=== PATIENT | male | born 1940 | race Caucasian/White ===

== ENCOUNTER 2022-12-24 10:00 | Outpatient (RCR) | payer MEDICARE, SELFPAY ==
--- NOTE | 2022-11-03 16:56 | HP.SP.EV_ITS ---
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 He lives with his , Vero, who was present for session and helped serve as historian. 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 At home Tyson mostly watches TV. Does not assist with making food or folding laundry. Tyson reports having the most difficulty with his words. 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 Smoking Status: Never smoker Pain Is pain an issue with your current prescribed condition?: No Personal Preferred language: [place] * Pediatric & Adult patients Adult BDAE-3 [place] Diagnostic Aphasia Examination BDAE-3 Administered: Yes BDAE-3: The BDAE-3 assesses communication in the areas of: conversational and expository speech, auditory comprehension, oral expression, reading and writing. Date: 11/02/22 Severity Level: 2 Level Detail: Conversation about familiar subjects is possible with help from listener. Frequent failures to convey the idea, but the patient shares the burden of communication. Rating Scale Profile of speech character Articulation Agility: 5 Detail: Facility at phoneme and syllable level ranges from 1 being unable to form speech sounds to 7 being never impaired Phrase length: 5 Detail: Longest occasional uninterrupted word runs Grammatical form: 5 Detail: Variety of grammatical constructions; use of grammatical mophemes: 1=nosyntactic word groupings ranging to 7 being normal range of syntax; normal facility with grammatical words Melodic Line (Prosody): 5 Detail: 1=word b word or aprosodic speech ranging to 7 being normal speech lesa Paraphasia in running speech: 6 Detail: 1 present in evrey utterance ranging to 7 s absent Word finding relative to fluency: 4 Detail: 1 is fluent but empty speech ranging to 7 as output primarily content words Summary Profile Auditory Comprehension Basic word discrimination Percentile: 100 with a raw score of 16/16 Commands Percentile: 30 with a raw score of 7/10 Complex Ideational Material Percentile: WILL CONTINUE NEXT SESSION Summary Profile Recitation Recitation automatized sequences Percentile: 100 with a raw score of 4/4 Summary Profile Repitition Words Percentile: 60 with a raw score of 4/5 Sentences Percentile: 60 with a raw score of 1/2 Summary Profile Naming Responsive Naming Percentile: 100 with a raw score of 10/10 [place] Naming Test Percentile: 70 with a raw score of 11/15; Pt benefited from mod verbal/semantic cues Special Categories Percentile: WILL CONTINUE NEXT SESSION Summary Profile Paraphasia Phonemic example- Janeth for [place]: WILL CONTINUE NEXT SESSION Verbal examples - for : WILL CONTINUE NEXT SESSION Neologistic - example planker for comb: WILL CONTINUE NEXT SESSION Multi-word: WILL CONTINUE NEXT SESSION Summary Profile Reading Matching cases and scripts: WILL CONTINUE NEXT SESSION Number matching: WILL CONTINUE NEXT SESSION Picture - word matching: WILL CONTINUE NEXT SESSION Oral word reading: WILL CONTINUE NEXT SESSION Oral sentence reading: WILL CONTINUE NEXT SESSION Oral sentence comprehension: WILL CONTINUE NEXT SESSION Sentences/Paragraph comprehension: WILL CONTINUE NEXT SESSION Summary Profile Writing Form: WILL CONTINUE NEXT SESSION Letter choice: WILL CONTINUE NEXT SESSION Motor faclility: WILL CONTINUE NEXT SESSION Primer words: WILL CONTINUE NEXT SESSION Regular phonics: WILL CONTINUE NEXT SESSION Common irregular words: WILL CONTINUE NEXT SESSION Written picture naming: WILL CONTINUE NEXT SESSION Narrative writing: WILL CONTINUE NEXT SESSION BDAE-3 Comments Additional Information: -: Due to time constraints of session, unable to complete BDAE-3 in its entirety. Plan to continue with assessment in the next session to determine all strengths and areas of growth for Tyson. During the conversation and picture task, Tyson often using short, yet grammatical sentences such as it was nice or a cookie jar; there was a cookie; he fell. Intermittently a longer phrase such as she's splashing water all over the sink would be used. During what appeared to be a word finding error moment during conversation, ST probed Tyson and asked if jasiel craft forgot what he wanted to say or if he was having a hard time saying the word he wanted. Tyson reported he forgot what he was going to say. Suspect Tyson is having difficulty with both his memory and word finding errors which may be indicative of primary progressive aphasia. Pt reporting great frustration when having word finding difficulty. Reference: Neuro-QoL instrument In past 7 days I had to read something several times to understand it: Very often (several times a day) My thinking was slow: Very often (several times a day) I had to work really hard to pay attention or i would make a mistake: Very often (several times a day) I had trouble concentrating: Sometimes (2-3 times) How much DIFFICULTY do you currently reading & following complex instructions (e.g. directions for new medication: A lot planning for & keeping appts that are not part of weekly routine: A lot managing your time to do most of your daily activities: A lot learning new tasks or instructions: A lot Neuro-QOL Score Raw Score: 14 T - Score: 28.6 Radiation Oncology Patient Other Other Hearing Aids: -: Lengthy conversation at the beginning of session re: Pt's hearing aids. Pt has hearing aids and opts not to wear them. Vero reporting this has been a struggle. Education provided re: importance of wearing hearing aids and how they will help him eliminate the problem solving and auditory comprehension difficulties he reports experiencing during large family gatherings. Suspecting at this time Pt has difficulty understanding what is being said in his environment largely in part d/t not being able to hear. Discussed how wearing hearing aids will allow him to hear what is being said and he would just need to focus on his responses vs. having to problem solve what was said as well as how to respond. Pt seemed receptive to education, however suspect he would benefit from continued education. Plan Plan Plan: Will recommend Pt for weekly outpatient speech therapy intervention address moderate expressive aphasia and moderate cognitive deficits. Pt would benefit from circumlocution training, verb network training, and immediate feedback to identify instances of word finding errors. Pt would also benefit from cognitive training to assess home-life activities and how modifications to existing routines may assist in improving memory. Without skilled intervention Pt is at risk for difficulty with communicating basic, medical, emergent, social wants & needs, and interacting with family/friends at home, and during social interactions. Recommendations Treatment Warranted: Yes Treatment Warranted: Receptive/ Expressive Language and Cognition Progress Prognosis: Good Frequency Frequency: 1x/Week Duration: 6 Weeks Goals that are Established Determination:: Goals will be added/modified as deemed necessary and appropriate. Therapy will be discontinued when results of re-evaluation indicate therapy is no longer needed or lack of progress has been documented. Goal #1-5 Goal #1: Tyson will modify environment at home via implementing memory compensatory strategies within 3 weeks' time of their initial evaluation. Goal #2: Tyson will generate 3 sentences when given a target verb following WHO+verb+WHAT structure in 4/6 opportunities given min verbal cues across 3 consecutively measured sessions. Goal #3: Tyson will generate 3 additional pieces of information answering WHERE/WHEN/WHY of one self-created WHO+verb+WHAT sentence with 2 of the 3 questions answered independently across 3 consecutively measured sessions. Goal #4: Tyson will independently demonstrate use of word finding strategies to complete complex convergent and divergent naming tasks with 70% acc across 3 measured opportunities. Goal #5: Tyson will read 2 or more sentences and answer comprehension questions re: the material at 65% accuracy given frequent moderate cues. Education Patient has Indicated that the Following Identified Educational Needs: None The Patient has indicated that they have no educational or learning abilities that may effect their care.: Yes Patient Instruction Patient Education: Diagnosis, Treatment Plan and Goals Person Taught: Patient and Family Teaching Method: Discussion, Demonstration and Handout Response to teaching: Return demonstration and Verbalize understanding
--- NOTE | 2023-01-19 16:38 | HP.SP.DC ---
ST Discharge Summary Discharged: Discharge: GAGAN XIE is a 82 year old male who was seen for initial language evaluation at [facility] on 11/02/22 secondary to dx of frontal lobe dementia. Pt attended 6 additional sessions from initial evaluation targeting total communication and attempts with a variety of aphasia intervention strategies in attempts to preserve language function. First attempted Verb Network Strength Training for a few sessions and this approach was not functional for Tyson. We switched to Melodic Intonation Therapy which was more productive for Tyson as he was frequently successful given min-mod cues. Following thorough discussion with Vero and Tyson, Tyson would like to be done with therapy at this time. He reports the singing has been helpful, but overall, talking is frustrating for him and he would like to be done. Suspect Tyson would benefit from cont'd therapy as he seems to be responding well the [facility], however considering quality of life and Tyson's wishes, will d/c Pt from caseload. Also offered a low-tech communication board with categorized words (example shown) as a non-verbal way to communicate, however Pt politely declined. Tyson is being discharged from speech therapy caseload on this date, 01/19/23. Thank you for allowing me to participate the care of your Pt. Will reevaluate at Pt?s request following script from physician.
== END 2022-12-24 19:00 | disposition home or self-care (01) ==
LOC: SP 10:00
PROVIDERS: PCP Internal Medicine
DX: G31.09 Other frontotemporal neurocognitive disorder (principal); F02.80 Dementia in other diseases classified elsewhere, unspecified severity, without behavioral disturbance, psychotic disturbance, mood disturbance, and anxiety; R47.01 Aphasia
CPT/HCPCS: 92507; 92523

== ENCOUNTER 2024-02-19 08:16 | Emergency (ER) | payer MEDICARE, SELFPAY ==
[2024-02-19 08:16] VITALS: BP 114/64; PULSE 77; RESP 23; TEMP 36.7; O2SAT 97; BMI 37.8
--- NOTE | 2024-02-19 08:26 | CT_ITS ---
INDICATION: trauma EXAMINATION: CT BRAIN - CT Head or Brain W/O Contrast Injection TECHNIQUE: Multiple axial images were obtained of the head without intravenous contrast. The protocol utilizes one or more of the following dose reduction techniques: automated exposure control, adjustment of mA and/or kV according to patient size,and/or use of iterative reconstruction technique. IV Contrast dosage and agent: None. RADIATION DOSAGE (If Supplied By Facility): CTDIvol = ( 44.99 ) mGy, DLP = ( 796.11 ) mGycm COMPARISON: No relevant prior comparison study available FINDINGS: BRAIN PARENCHYMA: No intra- or extra-axial hemorrhage. No evidence of acute infarct. No intracranial mass or mass effect. There is preservation of the alarcon/white matter interface. Periventricular deep white matter changes likely due to microvascular disease. Posterior fossa structures are unremarkable. CSF SPACES: Mild to moderate diffuse atrophy. No hydrocephalus. Basal cisterns are patent. CALVARIUM, SKULL BASE, PARANASAL SINUSES AND MASTOID AIR CELLS: Mucosal thickening of the ethmoid sinuses. No discrete lytic or blastic abnormalities. ORBITS: Both globes, extraocular muscles, optic nerves and retrobulbar fat appear unremarkable. CT/Brain/Head without Contrast IMPRESSION: 1. No acute intracranial process. 2. Chronic involutional changes of the brain. Electronically Signed: Deny Bowie MD at 9:58 EST ,
--- NOTE | 2024-02-19 08:26 | CT_ITS ---
INDICATION: trauma EXAMINATION: CT CERVICAL SPINE - CT Spine Cervical W/O Contrast Injection TECHNIQUE: Helically acquired images were obtained of the cervical spine. 2D reformatted images were reviewed. The protocol utilizes one or more of the following dose reduction techniques: automated exposure control, adjustment of mA and/or kV according to patient size,and/or use of iterative reconstruction technique. IV Contrast dosage and agent: None. RADIATION DOSAGE (If Supplied By Facility): CTDIvol = ( 29.62 ) mGy, DLP = ( 519.57 ) mGycm COMPARISON: No relevant prior comparison study available FINDINGS: VERTEBRAE: No fracture or traumatic subluxation. No discrete lytic or blastic abnormality. Straightening of the cervical spine. Alignment of the vertebral bodies unremarkable. Normal craniocervical junction and cervicothoracic junction. DISCS and SPINAL CANAL: Narrowing of C5-C6 and C6-C7 disc spaces. Endplate spondylosis. Degenerative changes of the facet joints at multiple levels. No critical stenosis. NECK SOFT TISSUES: No prevertebral soft tissue swelling. There is no cervical adenopathy. LUNG APICES: Clear. CT/Spine Cervical without Contras IMPRESSION: No evidence of acute cervical spinal fracture or spondylolisthesis. Electronically Signed: Deny Bowie MD at 10:05 EST ,
--- NOTE | 2024-02-19 08:29 | EDS_ITS ---
HPI History of Present Illness Chief Complaint: Fall Informant: spouse/S.O. and EMS Narrative Narrative: 83-year-old male on home hospice care reportedly fell during the night. Hospice came out and noted abrasion to the right leg. He was assisted to a chair. Then this morning he went to get out of the chair and fell. EMS was called and they noted the patient was in a prone position. They note bleeding from the nose and forehead. Patient is minimally verbal. Per family the patient is nonambulatory at baseline. PFSH PFS Medical History Dementia COPD (chronic obstructive pulmonary disease) Allergy/AdvReac Type Severity Reaction Status Date / Time No Known Allergies Allergy Verified 02/19/24 08:16 Social History Smoking Status: Never smoker ROS ROS ED Review of Systems ROS Unobtainable: due to mental status EXAM Physical Exam Const Vital Signs: 02/19/24 08:16 02/19/24 08:26 02/19/24 10:16 Temperature 98.1 F 98.3 F Temperature Source Oral Pulse Rate 77 65 Respiratory Rate 23 H 19 H Respiratory Effort Normal Blood Pressure 114/64 140/63 H Blood Pressure Mean 80 88 Pulse Ox 97 95 Oxygen Delivery Method Room Air Positive well nourished, well developed and obese General Appearance ED: well developed and NAD Nutritional Appearance: obese HEENT Reports normocephalic and moist mucous membranes HEENT Narrative: There is 1/2 cm linear laceration to the bridge of the nose. There is associated superficial abrasion surrounding this. There is no septal hematoma. I do not appreciate orbital trauma that she has hyphema subconjunctival he morrhage. There is superficial forehead abrasion. No mandibular malocclusion or obvious dental trauma noted. Eyes PERRL and EOMs intact bilaterally Neck no lymphadenopathy, supple and no JVD Resp normal respiratory effort and clear to auscultation bilaterally Cardio regular rate, regular rhythm and no murmurs GI normal to inspection, nondistended, normoactive bowel sounds and non-tender Palpation: soft Back/Spine no CVA tenderness and normal ROM Extremity normal to inspection General Extremety ED: Negative for edema General Extremity: Negative for edema Neuro CN's II-XII intact bilaterally Sensorium / Orientation: alert Motor Exam: strength 5/5 throughout Psych mental status grossly normal Mood & Affect: Negative for depressed or tearful Skin no rashes or lesions noted Skin Narrative: Abrasion to the anterior right leg no deformity noted. MDM MDM MDM Narrative Medical decision making narrative: Differential diagnosis includes but not limited to lower extremity fracture nasal fracture intracranial hemorrhage skull fracture cervical spine fracture cervical myofascial strain all Patient's vital signs are stable. He is alert. Wound on his nose was locally anesthetized using 1% lidocaine. Was washed with Shur-Clens explored closed using a single 5-0 Vicryl stitch. Rest of his wounds were cleansed bacitracin applied. CT of the brain and cervical spine was obtained. The read by radiology reviewed by myself. No obvious fracture or intracranial hemorrhage noted. My independent interpretation the plain films of the right tibia/fibula is no acute fracture. History & Record Review Discussion w/independent historian: EMS personnel and Family Radiography Diagnostic Testing: Clinical Impression(s) from Imaging Studies Brain CT 02/19/24 08:26 IMPRESSION: 1. No acute intracranial process. 2. Chronic involutional changes of the brain. Electronically Signed: Deny Bowie MD at 9:58 EST Reading Location ID and State: [facility] / [place] Tel , Service support , Cervical Spine CT 02/19/24 08:26 IMPRESSION: No evidence of acute cervical spinal fracture or spondylolisthesis. Electronically Signed: Deny Bowie MD at 10:05 EST , Tibia/Fibula X-Ray 02/19/24 08:40 IMPRESSION: No evidence of acute fracture or dislocation. Electronically Signed: Deny Bowie MD at 10:14 EST , Discharge Plan Triage Chief Complaint: Fall ED Provider: Rasta Garay Dx/Rx/DC Orders Clinical Impression: Fall, Facial laceration, Facial hematoma, Abrasion of leg Instructions: ED Abrasion, ED Head Injury (Adult), ED Laceration, All Closures Primary Care Provider: Bipin Escobar Referrals: Bipin Escobar MD [Primary Care Provider] - As Needed Activity Restrictions/Additional Instructions: I would recommend applying an antibiotic ointment at least once a day to the wounds. There is a stitch on the bridge of the nose. This is an absorbable stitch and should dissolve over the next week. Print Language: Italian Disposition Disposition: Home, Self Care
--- NOTE | 2024-02-19 08:40 | RAD_ITS ---
INDICATION: injury EXAMINATION/TECHNIQUE: X-RAY - RIGHT XR Tibia/Fibula 2 Views 2 VIEWS COMPARISON: No relevant prior comparison study available FINDINGS: SOFT TISSUES: No soft tissue swelling or gas. No radiopaque foreign body. BONES/JOINTS: No acute fracture or subluxation.. Normal alignment. Preservation of the joint space.. No sclerotic or destructive changes observed. RAD/Tibia & Fibula 2 Views IMPRESSION: No evidence of acute fracture or dislocation. Electronically Signed: Deny Bowie MD at 10:14 EST ,
[2024-02-19] MEDS: Lidocaine 1% (20 ml mdv) 20 ML Vial INFILT (08:45)
[2024-02-19 10:16] VITALS: BP 140/63; PULSE 65; RESP 19; TEMP 36.8; O2SAT 95
== END 2024-02-19 11:37 | disposition home or self-care (01) ==
PROVIDERS: Emergency Provider Emergency Medicine; PCP Internal Medicine; Visit Provider Emergency Medicine
DX: S01.21XA Laceration without foreign body of nose, initial encounter (principal); F03.90 Unspecified dementia, unspecified severity, without behavioral disturbance, psychotic disturbance, mood disturbance, and anxiety; S80.811A Abrasion, right lower leg, initial encounter; W19.XXXA Unspecified fall, initial encounter; E66.9 Obesity, unspecified; Z68.37 Body mass index [BMI] 37.0-37.9, adult; Z51.5 Encounter for palliative care
CPT/HCPCS: 12011; 70450; 72125; 73590; 99284